=== PATIENT | male | born 1985 | race Caucasian/White ===

== ENCOUNTER → 2017-12-08 | Outpatient (CLI) | payer OTHER ==
[~2017-12-08] MED LIST: AMOCLA875 PO; AZIT250 PO; BENZ1 PO; BENZ100A PO; CEPH500 PO; CIPR500 PO; CITA20; CYCL10 PO; ESCI10 PO; ESCI20 PO; FLUO20 PO; HALO5 PO; HYDACE5 PO; HYDR1TAB94 PO; IBUP800 PO; KETO10 PO; LAMO100 PO; LATUDA PO; LIDO700A20 TOP; LORA.5 PO; LORA1 PO; MELA3 PO; METPRE4DP PO; NAPR500 PO; Norco 5-325 Ta1 EACH PO; OXYACE5T PO; PROM25 PO; RXCYCL10 PO; RXHYD5325 PO; RXOXYACE PO; Robaxin500 MG PO; SULTRIDS PO; TAMS.4ER PO; [UNRECOGNIZED DRUG - OTHER] PO
[2017-12-08 18:32] LABS: BASOPHILS ABSOLUTE AUTO 0.04 K/mm3 (0.00-0.23); BASOPHILS PERCENT AUTO 0 % (0-2); EOSINOPHILS ABSOLUTE AUTO 0.71 K/mm3 (0.00-0.68); EOSINOPHILS PERCENT AUTO 8 % (0-6); Hematocrit 44.3 % (37.0-53.0); Hemoglobin 14.7 g/dL (13.5-17.5); IMMATURE GRAN ABSOLUTE AUTO 0.04 K/mm3 (0.00-0.10); IMMATURE GRAN PERCENT AUTO 0 % (0-1); LYMPHOCYTES PERCENT AUTO 22 % (21-46); MONOCYTES ABSOLUTE AUTO 0.77 K/mm3 (0.16-1.47); MONOCYTES PERCENT AUTO 8 % (4-13); Mean Corpuscular HGB 29.6 pg (26.0-34.0); Mean Corpuscular HGB Conc 33.2 g/dL (31.5-36.5); Mean Corpuscular Volume 89 fL (80-100); Mean Platelet Volume 11.1 fL (9.1-12.4); NEUTROPHILS ABSOLUTE AUTO 5.76 K/mm3 (1.96-9.15); NEUTROPHILS PERCENT AUTO 61 % (41-73); Platelet Count 295 K/mm3 (150-400); RDW Coefficient Variation 11.9 % (11.7-14.2); RDW Standard Deviation 38.4 fL (35.1-46.3); Red Blood Cell Count 4.96 M/mm3 (4.30-5.90); White Blood Cell Count 9.42 K/mm3 (4.00-11.30)
[2017-12-08 18:54] LABS: Alanine Aminotransfer (ALT/SGP 24 U/L (12-78); Albumin, Blood 4.2 g/dL (3.4-5.0); Albumin/Globulin Ratio 1.1 (0.8-1.8); Alk Phos 102 U/L (50-136); Anion Gap 9 mmol/L (6-16); Aspartate Aminotrans (AST/SGOT 24 U/L (12-37); Bilirubin, Total 0.3 mg/dL (0.1-1.0); Blood Urea Nitrogen 8 mg/dL (8-24); Bun/Creatinine Ratio 7.3 (12.0-20.0); CHOL/HDL RATIO 6.5; CO2, Blood 26 mmol/L (21-32); Calcium, Blood 8.8 mg/dL (8.5-10.1); Chloride, Blood 105 mmol/L (98-108); Cholesterol 209 mg/dL (50-200); Free Thyroxine 0.92 ng/dL (0.70-1.60); Globulin, Blood 3.7 g/dL (2.2-4.0); Glomerular Filtration Rate >60 (60-); Glucose, Blood 68 mg/dL (70-99); HDL Cholesterol 32 mg/dL (>39); LDL/HDL RATIO 4.4; Low Density Lipoprotein Chol 139 mg/dL (0-110); Potassium, Blood 4.3 mmol/L (3.5-5.5); Sodium, Blood 140 mmol/L (136-145); Total Protein, Blood 7.9 g/dL (6.4-8.2); Triglycerides 189 mg/dL (30-140); Very Low Density Lipoprot Chol 37 mg/dL (6-28)
== END | disposition home or self-care (01) ==
LOC: LAB SHORT 15:30 → LAB 15:30
PROVIDERS: Nurse Practitioner Adult Health
DX: E66.9 Obesity, unspecified (principal); F43.12 Post-traumatic stress disorder, chronic; F41.0 Panic disorder [episodic paroxysmal anxiety]; F20.0 Paranoid schizophrenia
CPT/HCPCS: 80053; 80061; 83036; 84439; 84443; 85025

== ENCOUNTER 2018-10-06 21:23 | Emergency (ER) | payer OTHER ==
[~2018-10-06 21:23] MED LIST changes: +Benztropine Mesy1 MG; +CLON.5; +RISP4; +VENL75ER; +Vistaril50 MG PO
== END 2018-10-06 22:50 | disposition left against medical advice (07) ==
LOC: ER 21:23
DX: Z53.21 Procedure and treatment not carried out due to patient leaving prior to being seen by health care provider (principal)

== ENCOUNTER 2018-12-31 12:58 | Emergency (ER) | payer OTHER ==
[~2018-12-31] VITALS: Ht 182.9 cm; Wt 145.2 kg
[2018-12-31 14:20] LABS: BASOPHILS ABSOLUTE AUTO 0.04 K/mm3 (0.00-0.23); BASOPHILS PERCENT AUTO 0 % (0-2); EOSINOPHILS ABSOLUTE AUTO 0.21 K/mm3 (0.00-0.68); EOSINOPHILS PERCENT AUTO 2 % (0-6); Hematocrit 39.3 % (37.0-53.0); Hemoglobin 13.3 g/dL (13.5-17.5); IMMATURE GRAN ABSOLUTE AUTO 0.07 K/mm3 (0.00-0.10); IMMATURE GRAN PERCENT AUTO 1 % (0-1); LYMPHOCYTES ABSOLUTE AUTO 1.84 K/mm3 (0.84-5.20); LYMPHOCYTES PERCENT AUTO 15 % (21-46); MONOCYTES ABSOLUTE AUTO 0.93 K/mm3 (0.16-1.47); MONOCYTES PERCENT AUTO 7 % (4-13); Mean Corpuscular HGB 29.8 pg (26.0-34.0); Mean Corpuscular HGB Conc 33.8 g/dL (31.5-36.5); Mean Corpuscular Volume 88 fL (80-100); Mean Platelet Volume 10.3 fL (9.1-12.4); NEUTROPHILS ABSOLUTE AUTO 9.41 K/mm3 (1.96-9.15); NEUTROPHILS PERCENT AUTO 75 % (41-73); Platelet Count 262 K/mm3 (150-400); RDW Coefficient Variation 12.5 % (11.7-14.2); RDW Standard Deviation 39.7 fL (35.1-46.3); Red Blood Cell Count 4.47 M/mm3 (4.30-5.90)
[2018-12-31 14:36] LABS: Alanine Aminotransfer (ALT/SGP 44 U/L (12-78); Albumin, Blood 3.7 g/dL (3.4-5.0); Albumin/Globulin Ratio 1.2 (0.8-1.8); Alk Phos 111 U/L (50-136); Anion Gap 5 mmol/L (6-16); Aspartate Aminotrans (AST/SGOT 25 U/L (12-37); Bilirubin, Total 0.3 mg/dL (0.1-1.0); Blood Urea Nitrogen 7 mg/dL (8-24); CO2, Blood 29 mmol/L (21-32); Calcium, Blood 8.5 mg/dL (8.5-10.1); Chloride, Blood 109 mmol/L (98-108); Globulin, Blood 3.1 g/dL (2.2-4.0); Glomerular Filtration Rate >60 (60-); Glucose, Blood 84 mg/dL (70-99); Potassium, Blood 3.8 mmol/L (3.5-5.5); Sodium, Blood 143 mmol/L (136-145); Total Protein, Blood 6.8 g/dL (6.4-8.2)
[2018-12-31] MEDS ORDERED: Percocet 5-3251 EACH PO (15:20)
== END 2018-12-31 15:34 | disposition home or self-care (01) ==
LOC: ER 12:58
PROVIDERS: Physician Assistant
DX: S22.42XA Multiple fractures of ribs, left side, initial encounter for closed fracture (principal); F20.9 Schizophrenia, unspecified; F32.9 Major depressive disorder, single episode, unspecified; F17.210 Nicotine dependence, cigarettes, uncomplicated; Z79.899 Other long term (current) drug therapy
CPT/HCPCS: 71046; 71250; 72070; 80053; 85025; 96374; 99284-25; J2270